=== PATIENT | female | born 1955 | race Two or more races ===

== ENCOUNTER → 2018-03-13 | Outpatient (CLI) | payer OTHER ==
[~2018-03-13] MED LIST: CELEBREX200 MG PO; CYMBALTA60 MG PO; MULTI VITAMIN1 EACH PO; SYNTHROID112 MCG PO; VITAMIN B-125000 MC1 PO; VITAMIN D-32000 UNI2 PO
[2018-03-13 10:12] LABS: BASOPHIL (%) 0.8 % (0-1); EOSINOPHIL (%) 2.5 % (0-5); EOSINOPHIL COUNT 0.1 K/uL (0-0.3); HEMATOCRIT 38.4 % (36.0-46.0); HEMOGLOBIN 12.6 G/DL (11.9-15.5); IMMATURE GRANULOCYTE (%) 0.2 % (0.0-0.7); LYMPHOCYTE (%) 27.6 % (15-42); LYMPHOCYTE COUNT 1.4 K/uL (1.0-2.8); MCH 30.2 PG (29.0-34.0); MCHC 32.8 G/DL (30.0-36.0); MCV 92.1 FL (83-99); MONOCYTE COUNT 0.5 K/uL (0-0.8); NEUTROPHIL (%) 58.9 % (45-76); NEUTROPHIL COUNT 2.9 K/uL (1.8-6.4); PLATELET COUNT 293 K/uL (156-360); RBC DIS.WIDTH-CV 13.2 % (11.8-14.6); RBC DIS.WIDTH-SD 45.1 % (39-53); RED BLOOD COUNT 4.17 M/uL (3.80-5.20); WHITE BLOOD COUNT 4.9 K/uL (4.1-10.2)
[2018-03-13 10:20] LABS: INTER. NORMALIZED RATIO 1.1
[2018-03-13 10:23] LABS: PTT 32.8 SEC (25-37)
[2018-03-13 13:03] LABS: ANISOCYTOSIS 1+; BASOPHILS 2.6 %; EOSINOPHIL ABS CT 0.1; EOSINOPHILS 1.8 % (0-5.0); LYMPHOCYTES 23.7 % (15.0-45.0); MONOCYTES 10.5 % (0-9.0); OVALOCYTES 1+; PLAT.SUFFICIENCY ADEQUATE; SEG.NEUTROPHILS 61.4 % (46.0-76.0)
== END | disposition home or self-care (01) ==
LOC: OPR 09:37 → EDSTATUS 10:00 → OPR 10:00
PROVIDERS: Internal Medicine Hematology & Oncology
DX: R93.8 Abnormal findings on diagnostic imaging of other specified body structures (principal); R89.8 Other abnormal findings in specimens from other organs, systems and tissues; R63.4 Abnormal weight loss
CPT/HCPCS: 77012; 85007; 85025; 85610; 85730; J2250; J2310; J3010